=== PATIENT | female | born 1965 | race Caucasian/White ===

== ENCOUNTER 2021-05-24 10:18 | Emergency (ER) | payer MEDICARE, OTHER ==
[~2021-05-24] VITALS: Ht 162.6 cm; Wt 70.3 kg
[2021-05-24 11:11] VITALS: BP 149/82
[2021-05-24] MEDS ORDERED: cefTRIAXone SOD 1,000 MG VL IM ONE (11:15)
[2021-05-24] MEDS ORDERED: LIDOCAINE 1% HCL (LOCAL ANESTH.) INJ 20ML MDV IJ ONE (11:15)
[2021-05-24] MEDS ORDERED: IBUPROFEN 800 MG TAB PO ONE (11:45)
[2021-05-24] MEDS ORDERED: DOXY-286 PO (11:51)
== END 2021-05-24 11:58 | disposition home or self-care (01) ==
LOC: ER 10:18
DX: L02.415 Cutaneous abscess of right lower limb (principal); L73.2 Hidradenitis suppurativa; I10 Essential (primary) hypertension; E03.9 Hypothyroidism, unspecified; Z79.2 Long term (current) use of antibiotics
CPT/HCPCS: 10060; 87075; 96372; 99283; J0696; J2001

== ENCOUNTER 2021-05-25 13:58 | Emergency (ER) | payer MEDICARE, OTHER ==
[~2021-05-25] VITALS: Ht 162.6 cm; Wt 70.3 kg
[~2021-05-25 13:58] MED LIST: DOXY-286 PO
[2021-05-25 16:15] LABS: Basophils # (auto) 0 10 ^3/uL (0-0.2); Basophils % (auto) 0.4 % (0.0-2.0); Eosinophils # (auto) 0 10 ^3/uL (0-0.8); Eosinophils % (auto) 0.2 % (0.0-7.0); Hematocrit 29.2 % (36.0-46.0); Hemoglobin 10.3 g/dL (12.2-16.2); Lymphocytes # (auto) 1.1 10 ^3/uL (0.4-5.4); Lymphocytes % (auto) 20.4 % (10.0-50.0); Mean Corpuscular Hemoglobin 30.9 pg (28.0-32.0); Mean Corpuscular Hgb Conc. 35.4 g/dL (32.0-36.0); Mean Corpuscular Volume 87.4 fL (80.0-100.0); Monocytes # (auto) 0.4 10 ^3/uL (0-1.3); Monocytes % (auto) 6.8 % (0.0-12.0); Neutrophils # (auto) 3.9 10 ^3/uL (1.6-8.6); Neutrophils % (auto) 72.2 % (37.0-80.0); Red Blood Cells 3.34 10^6/uL (4.0-5.20); Red Cell Distribution Width 12.9 % (11.8-14.3); White Blood Cell 5.4 10^3/uL (4.4-10.8)
[2021-05-25 16:31] LABS: BUN/Creatinine Ratio 12.7; Calcium 8.7 mg/dL (8.5-10.1); Potassium 4.2 mmol/L (3.5-5.1)
[2021-05-25 16:33] LABS: Bilirubin, Total 0.5 mg/dL (0.2-1.0); Total Protein 8.9 g/dL (6.4-8.2)
[2021-05-25] MEDS ORDERED: VANCOMYCIN 1GM/250ML 250 ML IV ONE (18:15)
[2021-05-25] MEDS ORDERED: SODIUM CHLORIDE 0.9% 500 ML IV ONE (18:15)
[2021-05-25] MEDS ORDERED: SODIUM CHLORIDE 0.9% 1,000 ML IV ONE (18:15)
[2021-05-26] MEDS ORDERED: HYDROcodone-ACET 5/325MG TAB PO ONE (00:30)
[2021-05-26] MEDS ORDERED: MORPHINE SULFATE 4 MG/ML SYR/VIAL IV ONE (01:30)
[2021-05-26] MEDS ORDERED: LORA0.5T20 PO (07:54)
[2021-05-26] MEDS ORDERED: CYCL-839 PO (07:54)
[2021-05-26] MEDS ORDERED: METO25TA5 PO (07:54)
[2021-05-26] MEDS ORDERED: AML5T PO (07:54)
[2021-05-26] MEDS ORDERED: GABA400C PO (07:54)
[2021-05-26] MEDS ORDERED: TRAZ-181 PO (07:54)
[2021-05-26] MEDS ORDERED: BACL20TA PO (07:54)
[2021-05-26] MEDS ORDERED: METOPROLOL TARTRATE 25 MG TAB PO ONE (08:00)
[2021-05-26] MEDS ORDERED: amLODIPine BESYLATE 5 MG TAB PO ONE (08:00)
[2021-05-26] MEDS ORDERED: GABAPENTIN 400 MG CAP PO ONE (08:00)
[2021-05-26] MEDS ORDERED: VANCOMYCIN 1GM/250ML 250 ML IV ONE (08:45)
[2021-05-26] MEDS ORDERED: CLINDAMYCIN 600MG IV 50 ML IV ONE (08:45)
[2021-05-26 09:55] VITALS: BP 130/77
== END 2021-05-26 11:13 | disposition home or self-care (01) ==
LOC: ER 13:58
DX: L03.115 Cellulitis of right lower limb (principal); L02.415 Cutaneous abscess of right lower limb; L73.2 Hidradenitis suppurativa; G61.0 Guillain-Barre syndrome; I10 Essential (primary) hypertension; E03.9 Hypothyroidism, unspecified; Z90.710 Acquired absence of both cervix and uterus
CPT/HCPCS: 36415; 71046; 80053; 83605; 83735; 84443; 85025; 85652; 87040; 93005; 96365; 96366; 96367; 96368; 96375; 99285; J2270; J3370; J3490; J7030; J7040